=== PATIENT | male | born 1935 | race Caucasian/White ===

== ENCOUNTER 2016-09-14 12:29 | Outpatient (CLI) | payer MEDICARE, BC ==
[2016-09-14] VITALS (13 sets, daily range): BP systolic 156–188; BP diastolic 81–95; PULSE 66–87; TEMP 98.4
[~2016-09-14] VITALS: Ht 177.8 cm; Wt 96.7 kg
[2016-09-14] MEDS ORDERED: TYLENOL PM EXTR1 TA1 PO (12:55)
[2016-09-14] MEDS ORDERED: PROVENTIL0.09 MG/A1 IH (12:56)
[2016-09-14] MEDS ORDERED: FLONASEALLERGY NS (12:56)
[2016-09-14] MEDS ORDERED: SYNTHROID0.05 MG/TA PO (12:57)
[2016-09-14] MEDS ORDERED: LYRICA 50MG CAP50 MG PO (12:57)
[2016-09-14] MEDS ORDERED: OCUVITE ADULT 51 SGL PO (12:58)
[2016-09-14] MEDS ORDERED: PROSCAR 5MG5 MG PO (12:58)
[2016-09-14] MEDS ORDERED: RENVELA800 MG PO (13:00)
[2016-09-14] MEDS ORDERED: SENSIPAR30 MG PO (13:01)
[2016-09-14] MEDS ORDERED: TRADJENTA5 MG PO (13:02)
[2016-09-14] MEDS ORDERED: 00186-0372-20 IH (13:02)
[2016-09-14] MEDS ORDERED: TRIAMCINOLONE A15 G3 TP (13:03)
[2016-09-14] MEDS ORDERED: ULORIC40 MG PO (13:04)
== END 2016-09-14 17:00 | disposition home or self-care (01) ==
LOC: COL.RAD 12:29
DX: D14.32 Benign neoplasm of left bronchus and lung (principal)
CPT/HCPCS: J2250; J3010

== ENCOUNTER 2017-01-11 07:46 | Day surgery (SDC) | payer MEDICARE, BC ==
[~2017-01-11] VITALS: Ht 177.8 cm; Wt 98.1 kg
[~2017-01-11 07:46] MED LIST: 00186-0372-20 IH; FLONASEALLERGY NS; LYRICA 50MG CAP50 MG PO; OCUVITE ADULT 51 SGL PO; PROSCAR 5MG5 MG PO; PROVENTIL0.09 MG/A1 IH; RENVELA800 MG PO; SENSIPAR30 MG PO; SYNTHROID0.05 MG/TA PO; TRADJENTA5 MG PO; TRIAMCINOLONE A15 G3 TP; TYLENOL PM EXTR1 TA1 PO; ULORIC40 MG PO
[2017-01-11] MEDS ORDERED: SUDAFED30 MG PO (08:32)
[2017-01-11 08:44] VITALS: BP 113/62; PULSE 45; TEMP 97.2
[2017-01-11 10:28] VITALS: BP 115/57; PULSE 80; TEMP 97.9
[2017-01-11 10:45] VITALS: BP 124/62; PULSE 79
[2017-01-11 11:00] VITALS: BP 123/57; PULSE 79
[2017-01-11 11:15] VITALS: BP 114/60; PULSE 77
[2017-01-11 11:30] VITALS: BP 118/54; PULSE 82
== END 2017-01-11 11:50 | disposition home or self-care (01) ==
LOC: SDCO 07:46
DX: C34.12 Malignant neoplasm of upper lobe, left bronchus or lung (principal); I12.9 Hypertensive chronic kidney disease with stage 1 through stage 4 chronic kidney disease, or unspecified chronic kidney disease; N18.9 Chronic kidney disease, unspecified; Z87.891 Personal history of nicotine dependence; J45.909 Unspecified asthma, uncomplicated; Z99.2 Dependence on renal dialysis; J44.9 Chronic obstructive pulmonary disease, unspecified; E03.9 Hypothyroidism, unspecified; M10.9 Gout, unspecified; M19.90 Unspecified osteoarthritis, unspecified site; R00.2 Palpitations
CPT/HCPCS: J0456; J2704; J2920; J7050